=== PATIENT | female | born 1995 | race Caucasian/White ===

== ENCOUNTER 2018-05-04 15:40 | Emergency (ER) | payer OTHER ==
--- NOTE | 2018-05-04 16:46 | EDPHY ---
H & P Stated Complaint: R flank pain Time Seen by Provider: 05/04/18 16:45 HPI/ROS: CHIEF COMPLAINT: Right flank pain HISTORY OF PRESENT ILLNESS: The patient presents to the ED with a one-week history of intermittent right flank pain. The patient does have a history of ureterolithiasis x2. During both of those episodes she passed her kidney stone spontaneously. She denies any fever, vomiting or dysuria. She denies any additional acute complaints. The patient otherwise is healthy. She takes no regular medications. She states that this pain is very typical of her renal colic. REVIEW OF SYSTEMS: A comprehensive 10 point review of systems is otherwise negative aside from elements mentioned in the history of present illness. Source: Patient Exam Limitations: No limitations - Personal History LMP (Females 10-55): Now Current Tetanus/Diphtheria Vaccine: Unsure Current Tetanus Diphtheria and Acellular Pertussis (TDAP): Unsure - Medical/Surgical History Hx Asthma: No Hx Chronic Respiratory Disease: No Hx Diabetes: No Hx Cardiac Disease: No Hx Renal Disease: No Hx Cirrhosis: No Hx Alcoholism: No Hx HIV/AIDS: No Hx Splenectomy or Spleen Trauma: No Other PMH: kidney stones, - Social History Smoking Status: Current every day smoker - Physical Exam Exam: General Appearance: Alert, no distress Eyes: Pupils equal and round no pallor or injection ENT, Mouth: Mucous membranes moist Respiratory: There are no retractions, lungs are clear to auscultation Cardiovascular: Regular rate and rhythm Gastrointestinal: Abdomen is soft and nontender, no masses, bowel sounds normal Back: Very mild right CVA tenderness Neurological: 5/5 strength all 4 extremities Skin: Warm and dry, no rashes Musculoskeletal: Neck is supple nontender Extremities: symmetrical, full range of motion Constitutional: Initial Vital Signs Temperature (C) 37 C 05/04/18 15:50 Heart Rate 79 05/04/18 15:50 Respiratory Rate 16 05/04/18 15:50 Blood Pressure 128/87 H 05/04/18 15:50 O2 Sat (%) 99 05/04/18 15:50 O2 Delivery Mode Room Air Allergies/Adverse Reactions: No Known Allergies Allergy (Unverified 05/04/18 15:49) Home Medications: Medication Instructions Recorded Acyclovir 05/04/18 Bcp 05/04/18 Ondansetron Odt [Zofran Odt] 4 mg PO Q4PRN PRN #20 tab 05/04/18 Tamsulosin HCl [Flomax] 0.4 mg PO DAILY PRN #5 cap 05/04/18 oxyCODONE/APAP 5/325 [Percocet 1 - 2 tab PO Q6-8PRN PRN #20 tab 05/04/18 5/325 (RX)] Medical Decision Making ED Course/Re-evaluation: The patient presents the ED with symptoms consistent with recurrent renal colic. The patient is noted to have hematuria. The patient is having no symptoms of a UTI. She is afebrile. A urine culture has been sent. The patient is comfortable with conservative therapy. She will be given a prescription for Percocet, Flomax and Zofran. She is discharged home with a urinary strainer. She will follow up with Urology as needed. The patient will contact the emergency department in 2 days to check the results of her urine culture. Differential Diagnosis: Differential diagnosis considered includes cystitis, ureterolithiasis, nephrolithiasis, ectopic - Data Points Laboratory Results: 05/04/18 05/04/18 15:55 15:55 Urine Color YELLOW Urine Appearance HAZY Urine pH 5.0 (5.0-7.5) Ur Specific [place] 1.023 (1.002-1.030) Urine Protein NEGATIVE (NEGATIVE) Urine Ketones NEGATIVE (NEGATIVE) Urine Blood 3+ H (NEGATIVE) Urine Nitrate NEGATIVE (NEGATIVE) Urine Bilirubin NEGATIVE (NEGATIVE) Urine Urobilinogen NEGATIVE EU EU (0.2-1.0) Ur Leukocyte Esterase 1+ H (NEGATIVE) Urine RBC 50-182 /hpf H /hpf (0-3) Urine WBC 5-10 /hpf H /hpf (0-3) Ur Epithelial Cells TRACE /lpf /lpf (NONE-1+) Urine Bacteria 1+ /hpf H /hpf (NONE SEEN) Urine Mucus TRACE /lpf /lpf (NONE-1+) Urine Glucose NEGATIVE (NEGATIVE) Urine Test NEGATIVE Departure - Departure Disposition: Home, Routine, Self-Care Clinical Impression: Ureterolithiasis Condition: Good Instructions: Kidney Stones (ED) Additional Instructions: 1. Take Ibuprofen or Motrin 600 mg by mouth three times a day. 2. Percocet as needed for severe pain 3. Flomax as directed 4. Zofran as needed for nausea 5. Strain urine as directed 6. Return to the Emergency Department for intractable pain, fever or vomiting. 7. Followup with the urologist you have been referred to for unimproved symptoms. 8. Please contact the emergency department in 2 days at [phone] to check the results of your urine culture. Referrals: Colten Godinez MD [Medical Doctor] - As per Instructions Prescriptions: Ondansetron Odt [Zofran Odt] 4 mg PO Q4PRN PRN #20 tab PRN Reason: For Nausea oxyCODONE/APAP 5/325 [Percocet 5/325 (RX)] 1 - 2 tab PO Q6-8PRN PRN #20 tab PRN Reason: for pain Tamsulosin HCl [Flomax] 0.4 mg PO DAILY PRN #5 cap PRN Reason: for pain
[2018-05-04 17:27] VITALS: BP 135/78
== END 2018-05-04 17:27 | disposition home or self-care (01) ==
DX: N20.1 Calculus of ureter (principal); F17.210 Nicotine dependence, cigarettes, uncomplicated; Z87.442 Personal history of urinary calculi